=== PATIENT | female | born 1990 | race Caucasian/White ===

== ENCOUNTER 2017-08-11 15:57 | Inpatient (IN) | payer MEDICAID ==
[2017-08-11 16:40] LABS: URINE HCG POC HCG NEGATIVE (Negative)
[2017-08-11 16:51] LABS: AMPHETAMINE/METHAMPHETAMINE NEG (NEG); BARBITURATES NEG (NEG); BENZODIAZEPINES NEG (NEG); CANNABINOIDS NEG (NEG); COCAINE NEG (NEG); ETHANOL, URINE NEG (NEG); METHADONE NEG (NEG); OPIATES NEG (NEG); PHENCYCLIDINE NEG (NEG)
[2017-08-11 17:07] LABS: ANION GAP 6 (6-14); BLOOD UREA NITROGEN 12 mg/dL (7-20); BUN/CREATININE RATIO 15 (6-20); CALCIUM 8.7 mg/dL (8.5-10.1); CARBON DIOXIDE 32 mmol/L (21-32); CHLORIDE 104 mmol/L (98-107); CREATININE 0.8 mg/dL (0.6-1.0); GFR 85.4; GLUCOSE 79 mg/dL (70-99); POTASSIUM 4.7 mmol/L (3.5-5.1); SODIUM 142 mmol/L (136-145)
[2017-08-11 17:09] LABS: ETHANOL < 10 mg/dL (0-10)
[2017-08-11 17:12] LABS: ALBUMIN 3.7 g/dL (3.4-5.0); ALBUMIN/GLOBULIN RATIO 1.2 (1.0-1.7); ALK PHOS 74 U/L (46-116); ALT (SGPT) 30 U/L (14-59); AST (SGOT) 15 U/L (15-37); TOTAL BILIRUBIN 0.1 mg/dL (0.2-1.0); TOTAL PROTEIN 6.8 g/dL (6.4-8.2)
[2017-08-11 18:07] LABS: ADD MAN DIFF? NO
[2017-08-11 18:10] LABS: BASO # 0.1 x10^3/uL (0.0-0.2); BASO % 1 % (0-3); EOS # 0.1 x10^3/uL (0.0-0.7); EOS % 1 % (0-3); HEMATOCRIT 41.8 % (36.0-47.0); HEMOGLOBIN 13.9 g/dL (12.0-15.5); LYMPH # 4.9 x10^3/uL (1.0-4.8); LYMPH % 42 % (24-48); MEAN CORPUSCULAR HEMOGLOBIN 33 pg (25-35); MEAN CORPUSCULAR HGB CONC 33 g/dL (31-37); MEAN CORPUSCULAR VOLUME 100 fL (79-100); MONO # 1.1 x10^3/uL (0.0-1.1); MONO % 9 % (0-9); NEUT # 5.6 x10^3uL (1.8-7.7); NEUT % 48 % (31-73); PLATELET COUNT 215 x10^3/uL (140-400); RED CELL DISTRIBUTION WIDTH 14.4 % (11.5-14.5); WHITE BLOOD COUNT 11.6 x10^3/uL (4.0-11.0)
[2017-08-11] MEDS ORDERED: ONDANSETRON PF 4 MG/2 ML VIAL. IV ×2 (20:30)
[2017-08-11] MEDS ORDERED: ACETAMINOPHEN 325 MG TABLET. PO ×2 (20:30)
[2017-08-11] MEDS: NICOTINE 21MG PATCH. TD ×2 (20:30)
[2017-08-11] MEDS: hydrOXYzine PAMOATE 25 MG CAPSULE PO ×2 (20:30)
[2017-08-12] MEDS: clonazePAM 1 MG TABLET PO ×4 (08:54→20:48)
[2017-08-12] MEDS: EMTRICITAB/TENOFOVIR 200/300MG TABLET. PO ×4 (08:54→20:15)
[2017-08-12] MEDS: ACYCLOVIR 200 MG CAPSULE. PO ×4 (08:54→20:15)
[2017-08-12] MEDS: RALTEGRAVIR 400 MG TABLET. PO ×4 (08:55→20:15)
[2017-08-12] MEDS ORDERED: hydrOXYzine PAMOATE 25 MG CAPSULE PO ×2 (09:00)
[2017-08-12] MEDS ORDERED: ONDANSETRON PF 4 MG/2 ML VIAL. IV ×2 (09:45)
[2017-08-12] MEDS: NICOTINE 21MG PATCH. TD ×2 (20:14)
[2017-08-12] MEDS: PRAZOSIN 1 MG CAPSULE. PO ×2 (20:47)
[2017-08-12] MEDS: HALOPERIDOL 2 MG TABLET. PO ×2 (20:48)
[2017-08-12] MEDS: hydrOXYzine PAMOATE 25 MG CAPSULE PO ×2 (20:48)
[2017-08-13] MEDS: RALTEGRAVIR 400 MG TABLET. PO ×2 (11:54)
[2017-08-13] MEDS: ACYCLOVIR 200 MG CAPSULE. PO ×2 (11:54)
[2017-08-13] MEDS: clonazePAM 1 MG TABLET PO ×2 (11:58)
== END 2017-08-13 15:30 | disposition home or self-care (01) | DRG 880 ==
LOC: ER 15:57 → 6 SOUTH 08-12 01:09 → ED HOLD 21:31
DX: R45.851 Suicidal ideations (principal); F15.10 Other stimulant abuse, uncomplicated; F19.10 Other psychoactive substance abuse, uncomplicated; F32.9 Major depressive disorder, single episode, unspecified; F43.10 Post-traumatic stress disorder, unspecified; F17.210 Nicotine dependence, cigarettes, uncomplicated; Z79.899 Other long term (current) drug therapy; Z88.8 Allergy status to other drugs, medicaments and biological substances; Z91.5 Personal history of self-harm
CPT/HCPCS: 36415; 80053; 80307; 81025; 85025; 99285; 99285-25; G0480; Q0177